=== PATIENT | female | born 1955 | race African-American/Black ===

== ENCOUNTER 2017-07-13 10:54 | Day surgery (SDC) | payer BC, OTHER ==
[2017-07-13 11:30] VITALS: BMI 35.4
[2017-07-13] MEDS ORDERED: ETOMIDATE 20 MG/10 ML AMPUL IVPUSH ONE (12:33)
[2017-07-13] MEDS ORDERED: PROPOFOL 20 ML ONE (12:34)
[2017-07-13 14:02] VITALS: TEMP 97.8
[2017-07-13 14:14] VITALS: PULSE 56
[2017-07-13 14:46] VITALS: BP 113/73
== END 2017-07-13 14:40 | disposition home or self-care (01) ==
LOC: JOR 10:54 → JASU-ENDO 10:54
PROVIDERS: ATTEND Internal Medicine Cardiovascular Disease
PROC: B246ZZ4 Ultrasonography of Right and Left Heart, Transesophageal (ICD-10-PCS; principal; 2017-07-13 12:00)
DX: I34.0 Nonrheumatic mitral (valve) insufficiency (principal); I36.1 Nonrheumatic tricuspid (valve) insufficiency
CPT/HCPCS: 93312; 93325